=== PATIENT | female | born 1985 | race Two or more races ===

== ENCOUNTER 2017-12-26 13:52 | Emergency (ER) | payer SELFPAY ==
[~2017-12-26] VITALS: Ht 170.2 cm; Wt 49.9 kg
[~2017-12-26 13:52] MED LIST: ABILIFY10 MG ORAL; WELLBUTRIN75 MG ORAL
[2017-12-26 14:08] VITALS: BP 144/64
[2017-12-26] MEDS ORDERED: Bacitracin Oint UD TOPIC ONE ×2 (14:14→14:15)
--- NOTE | 2017-12-26 14:18 | Emergency Room Report ---
History of Present Illness General Chief Complaint: Wound Recheck/Suture Removal Source: Patient Present Illness HPI 43-year-old female presents to the emergency department complaining of 6/10 in severity localized pain and dehiscence around a hand laceration that she had repaired 3 weeks ago. Patient reports that the skin was never quite pulled all the way together. Patient states that the gap is starting to light bigger. Patient reports some discoloration of bowel the laceration. She denies fevers or chills. She reports pain exacerbated to 7/10 in severity pain with attempts to make a closed fist. Denies new trauma or fall. denies bleeding or discharge from the wound. pt. states that to begin with the flap of skin was too short to cover the entire open wound. Denies numbness tingling or loss of sensation or gross motor movements of the extremities. Pt. UTD with tetanus. Allergies: Coded Allergies: No Known Allergies (Unverified , 12/26/17) Patient History Past Medical History: see triage record Past Surgical History: none Pertinent Family History: none Now: No Immunizations: UTD Reviewed Nursing Documentation: PMH: Agreed; PSxH: Agreed Nursing Documentation-PMH Past Medical History: No Stated History Review of Systems All Other Systems: negative except mentioned in HPI Physical Exam Vital Signs Date Time Temp Pulse Resp B/P (MAP) Pulse Ox O2 Delivery O2 Flow Rate FiO2 12/26/17 14:02 97.7 100 20 100 Room Air 97.7 12/26/17 14:08 144/64 Sp02 EP Interpretation: reviewed, normal General Appearance: no apparent distress, alert, GCS 15, non-toxic Head: normocephalic, atraumatic Eyes: bilateral eye normal inspection, bilateral eye PERRL ENT: hearing grossly normal, normal voice Neck: full range of motion Respiratory: chest non-tender, lungs clear, normal breath sounds, speaking full sentences Cardiovascular #1: regular rate, rhythm Musculoskeletal: back normal, gait/station normal, normal range of motion, non- tender Neurologic: alert, oriented x3, responsive, motor strength/tone normal, sensory intact, speech normal, grossly normal Psychiatric: judgement/insight normal Skin: normal color, no rash, warm/dry, well hydrated, other - Delayed healing by secondary intent of hand laceration on left palm. - flap. no discharge noted. mild darkening to the border of the laceration no appreciable erythema, superficial ttp. Lymphatic: no adenopathy Medical Decision Making PA Attestation Dr. Berger is my supervising Physician whom patient management has been discussed with. Diagnostic Impression: Primary Impression: Encounter for re-check of laceration wound Additional Impression: Wound healing, delayed ER Course 43-year-old female presents to the emergency department complaining of 6/10 in severity localized pain and dehiscence around a hand laceration that she had repaired 3 weeks ago. Patient reports that the skin was never quite pulled all the way together. Patient states that the gap is starting to light bigger. Patient reports some discoloration of bowel the laceration. She denies fevers or chills. She reports pain exacerbated to 7/10 in severity pain with attempts to make a closed fist. Denies new trauma or fall. denies bleeding or discharge from the wound. pt. states that to begin with the flap of skin was too short to cover the entire open wound. Denies numbness tingling or loss of sensation or gross motor movements of the extremities. Pt. UTD with tetanus. Ddx considered but are not limited to laceration, tendon injury, cellulitis, dehiscence. Vital signs: are WNL, pt. is afebrile H&PE are most consistent with: Delayed healing by secondary intent of hand laceration on left palm. - flap. no discharge noted. ORDERS: none required at this time, the diagnosis is clinical, does not appear to be ready for suture removal at this time. ED INTERVENTIONS: - bacitracin and dressing is applied. DISCHARGE: At this time pt. is stable for d/c to home. Will provide printed patient care instructions, and any necessary prescriptions. Care plan and follow up instructions have been discussed with the patient prior to discharge. Last Vital Signs Date Time Temp Pulse Resp B/P (MAP) Pulse Ox O2 Delivery O2 Flow Rate FiO2 12/26/17 14:08 97.8 71 20 144/64 100 Room Air 97.8 Disposition: HOME, SELF-CARE Condition: Stable Scripts Ibuprofen* (MOTRIN*) 600 Mg Tablet 600 MG ORAL THREE TIMES A DAY, #20 TAB 0 Refills Prov: Radha Gayle P.A. 12/26/17 Cephalexin* (KEFLEX*) 500 Mg Capsule 500 MG ORAL EVERY 12 HOURS for 7 Days, #14 CAP 0 Refills Prov: Radha Gayle 12/26/17 Bacitracin/Polymyxin B Sulfate (BACITRACIN-POLYMYXIN OINTMENT) 28.35 Gm Oint...g. 1 APPLIC TP BID, #25.3 GM Prov: Radha Gayle 12/26/17 Patient Instructions: Wound Dehiscence, [id number] Additional Instructions: Take medications as directed. Follow up with a Primary Care Provider in 3-5 days, even if your symptoms have resolved. --Please review list of primary care clinics, if you do not already have a primary care provider Return sooner to ED if new symptoms occur, or current symptoms become worse. - Please note that this Emergency Department Report was dictated using [employer] instructor technology software, occasionally this can lead to erroneous entry secondary to interpretation by the dictation equipment. Radha Gayle December 26, 2017 14:18
[2017-12-26] MEDS ORDERED: BACITRACIN-P28.35 GM TP (14:25)
[2017-12-26] MEDS ORDERED: IBUPROFEN600 MG ORAL (14:25)
[2017-12-26] MEDS ORDERED: CEPHALEXIN500 MG ORAL (14:25)
[2017-12-26 14:33] VITALS: BP 144/64
== END 2017-12-26 14:33 | disposition home or self-care (01) ==
LOC: EDBD → MERGE 14:10 → EMR 14:10
DX: S61.412D Laceration without foreign body of left hand, subsequent encounter (principal); X58.XXXD Exposure to other specified factors, subsequent encounter; Z48.01 Encounter for change or removal of surgical wound dressing
CPT/HCPCS: 99284